=== PATIENT | female | born 1975 | race Caucasian/White ===

== ENCOUNTER 2017-06-21 12:01 | Emergency (ER) | payer OTHER ==
[2017-06-21] MEDS ORDERED: Albuterol/Ipratropium NEB.SOL* Albuterol 2.5 MG/Ipratropium 0.5 MG 3 ML INH ONE (12:13)
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
[2017-06-21] MEDS ORDERED: predniSONE TAB* 20 MG PO ONE (12:20)
[2017-06-21 12:22] VITALS: BP 134/82
== END 2017-06-21 13:19 | disposition home or self-care (01) ==
LOC: UCCORT 12:01
DX: J40 Bronchitis, not specified as acute or chronic (principal); I10 Essential (primary) hypertension; Z90.49 Acquired absence of other specified parts of digestive tract; Z88.6 Allergy status to analgesic agent; Z88.5 Allergy status to narcotic agent; F17.210 Nicotine dependence, cigarettes, uncomplicated
CPT/HCPCS: 99212; A9270-GY; G0463; J7512

== ENCOUNTER 2017-11-09 09:59 | Emergency (ER) | payer OTHER ==
[2017-11-09 10:20] VITALS: BP 137/104
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
== END 2017-11-09 11:42 | disposition home or self-care (01) ==
LOC: UCCORT 09:59
DX: J40 Bronchitis, not specified as acute or chronic (principal); Z72.0 Tobacco use
CPT/HCPCS: 87651; 99212; G0463

== ENCOUNTER 2019-04-24 18:53 | Emergency (ER) | payer OTHER ==
[2019-04-24 19:42] VITALS: BP 147/111
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
--- NOTE | 2019-04-25 16:22 | UC ---
- Progress Note Progress Note: Radiologist reading of radiologist reading of right foot and ankle x-rays from April 24, 2019 comes back with soft tissue swelling and no fracture. Provider interpretation from the same date is the same therefore there is no discrepancy. Course/Dx - Diagnoses Provider Diagnoses: Ankle sprain Discharge - Sign-Out/Discharge Documenting (check all that apply): Patient Departure All imaging exams completed and their final reports reviewed: Yes - Discharge Plan Condition: Stable Disposition: HOME Patient Education Materials: Ankle Sprain (ED) Referrals: Maryjo Sun MD [Primary Care Provider] - Additional Instructions: wear the ravinder bandage as instructed. return if worse or any new symptoms. please follow up with your doctor beginning of the week. - Billing Disposition and Condition Condition: STABLE Disposition: Home
== END 2019-04-24 20:44 | disposition home or self-care (01) ==
LOC: UCCORT 18:53
DX: S93.401A Sprain of unspecified ligament of right ankle, initial encounter (principal); F17.210 Nicotine dependence, cigarettes, uncomplicated; W06.XXXA Fall from bed, initial encounter; Y92.003 Bedroom of unspecified non-institutional (private) residence as the place of occurrence of the external cause
CPT/HCPCS: 99211; G0463